=== PATIENT | female | born 1975 | race Caucasian/White ===

== ENCOUNTER 2021-02-28 08:38 | Emergency (ER) | payer BC ==
[2021-02-28] MEDS ORDERED: IBUPROFEN 600 MG TABLET (FP) PO ONE ×2 (08:58→09:15)
[2021-02-28 09:19] VITALS: BP 114/63; PULSE 74; TEMP 98.3; BMI 30.4
== END 2021-02-28 09:54 | disposition home or self-care (01) ==
LOC: FER 08:38 → EDBD 08:38 → FER 09:54
DX: S80.211A Abrasion, right knee, initial encounter (principal); S60.511A Abrasion of right hand, initial encounter; W19.XXXA Unspecified fall, initial encounter
CPT/HCPCS: 73110-TC-RT-FY; 73130-TC-RT-FY; 99283-25

== ENCOUNTER 2022-11-04 06:10 | Day surgery (SDC) | payer BC ==
[2022-10-26 15:39] VITALS: BMI 29.6
[2022-11-04] MEDS ORDERED: LIDOCAINE HCL 1%, 10 MG/ML (20ML VIAL) ONE (07:18)
[2022-11-04] MEDS ORDERED: BUPIVACAINE HCL/PF 0.5% (5MG/ML) 10 ML VIAL ONE (07:19)
[2022-11-04] MEDS ORDERED: MIDAZOLAM HCL 2 MG/2 ML SINGLE DOSE VIAL ONE (07:20)
[2022-11-04] MEDS ORDERED: PROPOFOL 20 ML ONE (07:20)
[2022-11-04] MEDS ORDERED: oxyCODONE HCL 5 MG TABLET PO PRN ×2 (07:37)
[2022-11-04] MEDS ORDERED: ACETAMINOPHEN 325 MG TABLET (FP) PO PRN (07:37)
[2022-11-04] MEDS ORDERED: ONDANSETRON 4 MG/2 ML VIAL IVPUSH PRN (07:37)
[2022-11-04] MEDS ORDERED: LACTATED RINGERS SOLUTION 1,000 ML IV SCH (07:45)
[2022-11-04] MEDS ORDERED: ceFAZolin SODIUM 1 GM VIAL ONE ×2 (08:05)
[2022-11-04 10:09] VITALS: PULSE 78; RESP 16; TEMP 97.6
[2022-11-04 10:11] VITALS: BP 118/74
== END 2022-11-04 10:20 | disposition home or self-care (01) ==
LOC: FASU 06:10
PROVIDERS: ATTEND Orthopaedic Surgery
PROC: 0LB50ZZ Excision of Right Lower Arm and Wrist Tendon, Open Approach (ICD-10-PCS; principal; 2022-11-04 08:18)
DX: M67.431 Ganglion, right wrist (principal)
CPT/HCPCS: 81025; 88304-TC; 94760